=== PATIENT | male | born 1980 | race Native Hawaiian/Other Pacific Islander ===

== ENCOUNTER 2016-12-22 08:28 | Emergency (ER) | payer OTHER ==
[~2016-12-22] VITALS: Ht 177.8 cm; Wt 64.9 kg
--- NOTE | 2016-12-22 08:49 | NUR ---
Dr Munson at the bedside for eval and exam.
[2016-12-22] MEDS ORDERED: IBUPROFEN 800 MG TABLET PO ONE (09:00)
[2016-12-22] MEDS ORDERED: IBUPROFEN 800 MG TABLET ONE (09:12)
[2016-12-22 09:43] VITALS: BP 122/68
--- NOTE | 2016-12-22 09:48 | NUR ---
Patient discharged to home in stable conditon. Written and verbal after care instructions given. Patient verbalizes understanding of instructions.
== END 2016-12-22 09:48 | disposition home or self-care (01) ==
LOC: ER 08:28
DX: S43.101A Unspecified dislocation of right acromioclavicular joint, initial encounter (principal); S43.421A Sprain of right rotator cuff capsule, initial encounter; V89.2XXA Person injured in unspecified motor-vehicle accident, traffic, initial encounter; Y93.89 Activity, other specified; Y92.413 State road as the place of occurrence of the external cause; Y99.9 Unspecified external cause status
CPT/HCPCS: 73030; A4663